=== PATIENT | male | born 1950 | race Hispanic/Latino ===

== ENCOUNTER 2021-05-26 14:00 | Inpatient (IN) | payer OTHER ==
[~2021-05-26] VITALS: Ht 162.6 cm; Wt 86.5 kg
[2021-05-26 09:40] LABS: BASOPHILS % (AUTO) 0.6 % (0.0-5.0); EOSINOPHILS % (AUTO) 2.9 % (0.0-8.0); HEMATOCRIT 38.2 % (42-54); LYMPHOCYTES % (AUTO) 38.8 % (21.0-51.0); MEAN CORPUSCULAR HEMOGLOBIN 29.4 pg (27.0-33.0); MEAN CORPUSCULAR HGB CONC 33.2 g/dL (32.0-36.0); MEAN CORPUSCULAR VOLUME 88.4 fL (79-99); MONOCYTES % (AUTO) 6.4 % (3.0-13.0); NEUTROPHILS % (AUTO) 51.1 % (40.0-77.0); PLATELET COUNT (AUTO) 140 K/uL (130-400); RED BLOOD CELL COUNT(AUTO) 4.32 MIL/uL (4.50-6.20); RED CELL DISTRIBUTION WIDTH 12.6 % (11.0-15.5); WHITE BLOOD COUNT (AUTO) 4.9 K/uL (4.8-10.8)
[2021-05-26 09:52] LABS: CREATININE 0.9 mg/dL (0.5-1.5); POTASSIUM 4.3 mmol/L (3.5-5.1)
[2021-05-26 09:56] LABS: INR 1.02 (0.85-1.15); PROTHROMBIN TIME 11.1 SEC (9.6-11.6)
[2021-05-26 10:27] LABS: APPEARANCE,URINE Clear (CLEAR); BILIRUBIN,URINE Negative (NEGATIVE); COLOR,URINE Yellow (YELLOW); GLUCOSE, URINE (UA) >=1000 mg/dL (NEGATIVE); KETONES,URINE Negative (NEGATIVE); LEUKOCYTE ESTERASE ,URINE Negative (NEGATIVE); NITRATE,URINE Negative (NEGATIVE); OCCULT BLOOD,URINE Negative (NEGATIVE); PH,URINE 6.5 (5.0-8.0); PROTEIN,URINE Negative (NEGATIVE)
[2021-05-26 10:50] LABS: BACTERIA,URINE Rare /HPF (None Seen); RBC,URINE None Seen /HPF (0-1); SQUAMOUS EPITHELIAL CELL,UR 0-2 /HPF (0-2); WBC,URINE None Seen /HPF (0-1)
[2021-05-27 11:08] VITALS: BP 134/74
[2021-05-27] MEDS ORDERED: INSU100V12 SQ (11:32)
[2021-05-27] MEDS ORDERED: METF-445 PO (11:32)
[2021-05-27] MEDS ORDERED: ROSU40TA21 PO (11:32)
[2021-05-27] MEDS ORDERED: LISI20TA24 PO (11:32)
[2021-05-27] MEDS ORDERED: ASPI-1443 PO (11:32)
[2021-05-28] VITALS (24 sets, daily range): BP systolic 102–136; BP diastolic 61–89
[2021-05-28] MEDS ORDERED: 0.9%NACL 1000ML 1,000 ML IV ONE (07:35)
[2021-05-28] MEDS: CEFAZOLIN SODIUM 1 GM VIAL ONE ×2 (07:45→11:28)
[2021-05-28] MEDS ORDERED: METOCLOPRAMIDE 10 MG/2 ML VIAL ONE (08:25)
[2021-05-28] MEDS ORDERED: ACETAMINOPHEN 500 MG TABLET ONE (08:26)
[2021-05-28] MEDS ORDERED: CELECOXIB 200 MG CAP ONE (08:26)
[2021-05-28] MEDS ORDERED: CEFAZOLIN SODIUM 1 GM VIAL ONE (08:42)
[2021-05-28] MEDS ORDERED: TRANEXAMIC ACID 1000MG/10ML ONE ×2 (08:42→14:17)
[2021-05-28] MEDS ORDERED: PROPOFOL 10 MG/ML 20ML VIAL IV ONE (11:00)
[2021-05-28] MEDS ORDERED: LIDOCAINE PF 100MG/5ML (2%) SYRINGE 5ML ONE (11:00)
[2021-05-28] MEDS ORDERED: SUCCINYLCHOLINE CHLORIDE 20 MG/ML 10 ML VIAL ONE (11:00)
[2021-05-28] MEDS ORDERED: MIDAZOLAM HCL 1 MG/ML 2ML VIAL ONE (11:00)
[2021-05-28] MEDS ORDERED: ROCURONIUM 10MG/1ML SYR 10 MG/ML ML ONE (11:00)
[2021-05-28] MEDS ORDERED: NEOSTIGMINE 5MG/5ML SYR IV ONE (11:27)
[2021-05-28] MEDS ORDERED: GLYCOPYRROLATE 1 MG/5 ML SYRINGE ONE (11:27)
[2021-05-28] MEDS ORDERED: EPHEDRINE SULFATE 50 MG/ML AMPULE ONE (11:33)
[2021-05-28] MEDS ORDERED: FENTANYL CITRATE PF 50 MCG/1 ML 2ML VIAL ONE (11:55)
[2021-05-28] MEDS ORDERED: CEFAZOLIN SODIUM 1 GM VIAL IRRIG ONE (11:55)
[2021-05-28] MEDS ORDERED: ONDANSETRON 4MG INJ ONE (13:50)
[2021-05-28] MEDS: ACETAMINOPHEN 500 MG TABLET PO SCH ×2 (14:00→21:35)
[2021-05-28] MEDS ORDERED: FERROUS FUMARATE 324 MG TABLET PO PRN (14:00)
[2021-05-28] MEDS ORDERED: DiphenhydrAMINE HCL 50 MG/ML VIAL IVP PRN (14:00)
[2021-05-28] MEDS ORDERED: TRAMADOL HCL 50 MG TABLET PO PRN (14:00)
[2021-05-28] MEDS ORDERED: TEMAZEPAM 15 MG CAPSULE PO PRN (14:00)
[2021-05-28] MEDS ORDERED: POTASSIUM CHLORIDE 20MEQ/100ML 100 ML IV PRN (14:00)
[2021-05-28] MEDS ORDERED: KCL 20 MEQ ERTAB PO PRN (14:00)
[2021-05-28] MEDS ORDERED: CALCIUM CARB 500MG PO PRN (14:00)
[2021-05-28] MEDS ORDERED: LIDOCAINE HCL-MPF 1% 2ML VIAL IV PRN (14:00)
[2021-05-28] MEDS: 0.9%NACL 1000ML 1,000 ML IV SCH (14:00)
[2021-05-28] MEDS ORDERED: OXYCODONE HCL 5 MG TAB PO PRN (14:00)
[2021-05-28] MEDS ORDERED: POTASSIUM CHLORIDE 10% ELIXIR 20 MEQ/15 ML UDCUP PO PRN (14:00)
[2021-05-28] MEDS ORDERED: ONDANSETRON 4MG INJ IVP PRN (14:00)
[2021-05-28] MEDS ORDERED: MEPERIDINE-PF 25 MG/ML SYG ONE (14:47)
[2021-05-28] MEDS: OXYCODONE HCL 5 MG TAB PO PRN ×2 (16:34→23:21)
[2021-05-28] MEDS: INSULIN HUMULIN R 100 UNIT/ML 3ML SQ SCH ×2 (16:35→21:00)
[2021-05-28] MEDS ORDERED: [UNRECOGNIZED DRUG - REMARK] MISC SCH (17:00)
[2021-05-28] MEDS: CEFAZOLIN SODIUM 1 GM VIAL IVP SCH (19:17)
[2021-05-28] MEDS: METFORMIN HCL 850 MG TABLET PO SCH (21:33)
[2021-05-28] MEDS: FAMOTIDINE 20MG TAB PO SCH (21:33)
[2021-05-28] MEDS: ASPIRIN 81 MG EC TAB PO SCH (21:34)
[2021-05-28] MEDS: CELECOXIB 200 MG CAP PO SCH (21:34)
[2021-05-28] MEDS: PREGABALIN 25 MG CAP PO SCH (21:35)
[2021-05-29] MEDS: CEFAZOLIN SODIUM 1 GM VIAL IVP SCH (03:11)
[2021-05-29 03:25] VITALS: BP 87/56
[2021-05-29] MEDS: KETOROLAC 15MG/ML VIAL (15MG/ML) IV PRN ×4 (04:07→23:58)
[2021-05-29 04:12] LABS: HEMATOCRIT 31.1 % (42-54); MEAN CORPUSCULAR HEMOGLOBIN 29.5 pg (27.0-33.0); MEAN CORPUSCULAR HGB CONC 33.4 g/dL (32.0-36.0); MEAN CORPUSCULAR VOLUME 88.1 fL (79-99); RED BLOOD CELL COUNT(AUTO) 3.53 MIL/uL (4.50-6.20); RED CELL DISTRIBUTION WIDTH 12.8 % (11.0-15.5); WHITE BLOOD COUNT (AUTO) 6.8 K/uL (4.8-10.8)
[2021-05-29 04:41] LABS: POTASSIUM 3.9 mmol/L (3.5-5.1)
[2021-05-29] MEDS: ACETAMINOPHEN 500 MG TABLET PO SCH ×3 (06:00→20:56)
[2021-05-29] MEDS: INSULIN HUMULIN R 100 UNIT/ML 3ML SQ SCH ×4 (06:42→20:54)
[2021-05-29 07:46] VITALS: BP 96/59
[2021-05-29] MEDS: PREGABALIN 25 MG CAP PO SCH ×2 (08:34→20:54)
[2021-05-29] MEDS: POLYETHYLENE GLYCOL 3350 17 GM POWD.PACK PO SCH (08:34)
[2021-05-29] MEDS: FAMOTIDINE 20MG TAB PO SCH ×2 (08:35→20:54)
[2021-05-29] MEDS: ATORVASTATIN 40 MG TABLET PO SCH (08:35)
[2021-05-29] MEDS: CELECOXIB 200 MG CAP PO SCH ×2 (08:35→20:53)
[2021-05-29] MEDS: ASPIRIN 81 MG EC TAB PO SCH ×2 (08:35→20:53)
[2021-05-29] MEDS: OXYCODONE HCL 5 MG TAB PO PRN ×4 (08:35→22:09)
[2021-05-29] MEDS: METFORMIN HCL 850 MG TABLET PO SCH ×3 (08:36→20:54)
[2021-05-29] MEDS: INSULIN GLARGINE 100 UNITS/ML 10 ML VIAL SQ SCH (08:38)
[2021-05-29] MEDS: LISINOPRIL 20 MG TABLET PO SCH (08:57)
[2021-05-29] MEDS: TAMSULOSIN HCL 0.4 MG CAP.ER.24H PO SCH (08:57)
[2021-05-29] MEDS: 0.9%NACL 1000ML 1,000 ML IV SCH ×2 (10:00)
[2021-05-29 11:00] VITALS: BP 99/56
[2021-05-29 16:00] VITALS: BP 131/76
[2021-05-29 20:00] VITALS: BP 113/73
[2021-05-29] MEDS ORDERED: BISACODYL 10 MG SUPP.RECT RC ONE (21:31)
[2021-05-29] MEDS ORDERED: MAGNESIUM CITRATE 296 ML SOLUTION PO ONE (22:00)
[2021-05-30] VITALS: BP 113/58
[2021-05-30 04:02] VITALS: BP 103/59
[2021-05-30] MEDS: ACETAMINOPHEN 500 MG TABLET PO SCH ×2 (06:00→13:19)
[2021-05-30] MEDS: INSULIN HUMULIN R 100 UNIT/ML 3ML SQ SCH ×2 (07:30→11:30)
[2021-05-30] MEDS: CELECOXIB 200 MG CAP PO SCH (07:33)
[2021-05-30] MEDS: FAMOTIDINE 20MG TAB PO SCH (07:34)
[2021-05-30] MEDS: ASPIRIN 81 MG EC TAB PO SCH (07:34)
[2021-05-30] MEDS: PREGABALIN 25 MG CAP PO SCH (07:34)
[2021-05-30] MEDS: POLYETHYLENE GLYCOL 3350 17 GM POWD.PACK PO SCH (07:34)
[2021-05-30] MEDS: ATORVASTATIN 40 MG TABLET PO SCH (07:34)
[2021-05-30] MEDS: OXYCODONE HCL 5 MG TAB PO PRN ×2 (07:34→13:19)
[2021-05-30] MEDS: INSULIN GLARGINE 100 UNITS/ML 10 ML VIAL SQ SCH (07:39)
[2021-05-30 08:00] VITALS: BP 113/65
[2021-05-30] MEDS: TAMSULOSIN HCL 0.4 MG CAP.ER.24H PO SCH (08:04)
[2021-05-30] MEDS: METFORMIN HCL 850 MG TABLET PO SCH ×2 (08:04→13:20)
[2021-05-30] MEDS: LISINOPRIL 20 MG TABLET PO SCH (08:04)
[2021-05-30 12:00] VITALS: BP 123/74
[2021-05-30] MEDS ORDERED: HYDR-4060 PO (15:15)
[2021-05-30] MEDS ORDERED: AEC81 PO (15:15)
[2021-05-31] MEDS ORDERED: BISACODYL 10 MG SUPP.RECT RC PRN (14:00)
== END 2021-05-30 18:13 | disposition home health service (06) | DRG 470 ==
LOC: DAHIP 05-28 06:09 → 4AH 05-28 15:22
PROVIDERS: ADMIT Orthopaedic Surgery; ATTEND Orthopaedic Surgery
PROC: 3E0T3BZ Introduction of Anesthetic Agent into Peripheral Nerves and Plexi, Percutaneous Approach (ICD-10-PCS; 2021-05-28)
PROC: 3E0T33Z Introduction of Anti-inflammatory into Peripheral Nerves and Plexi, Percutaneous Approach (ICD-10-PCS; 2021-05-28)
PROC: 0SRC0J9 Replacement of Right Knee Joint with Synthetic Substitute, Cemented, Open Approach (ICD-10-PCS; principal; 2021-05-28 11:02)
PROC: 5A09357 Assistance with Respiratory Ventilation, Less than 24 Consecutive Hours, Continuous Positive Airway Pressure (ICD-10-PCS; 2021-05-29)
PROC: 5A09357 Assistance with Respiratory Ventilation, Less than 24 Consecutive Hours, Continuous Positive Airway Pressure (ICD-10-PCS; 2021-05-30)
DX: M17.11 Unilateral primary osteoarthritis, right knee (principal); D64.9 Anemia, unspecified; G89.29 Other chronic pain; M23.8X1 Other internal derangements of right knee; Z20.822 Contact with and (suspected) exposure to COVID-19; F32.A Depression, unspecified; E11.9 Type 2 diabetes mellitus without complications; E78.00 Pure hypercholesterolemia, unspecified; E78.5 Hyperlipidemia, unspecified; I10 Essential (primary) hypertension; F43.10 Post-traumatic stress disorder, unspecified; G47.33 Obstructive sleep apnea (adult) (pediatric); J32.9 Chronic sinusitis, unspecified; Z90.49 Acquired absence of other specified parts of digestive tract; Z87.891 Personal history of nicotine dependence; Z88.8 Allergy status to other drugs, medicaments and biological substances; Z83.3 Family history of diabetes mellitus; Z82.49 Family history of ischemic heart disease and other diseases of the circulatory system
CPT/HCPCS: 36415; 80048; 81001; 82948; 85025; 85027; 85610; 87088; 87635; 87641; 97039; G0378; J0330; J0690; J1815; J1885; J2001; J2175; J2250; J2405; J2704; J2710; J2765; J3010; J3490; J7030